=== PATIENT | female | born 1990 | race Two or more races ===

== ENCOUNTER 2017-12-04 09:30 | Emergency (ER) | payer MEDICAID ==
[~2017-12-04] VITALS: Ht 157.5 cm; Wt 49.0 kg
[2017-12-04 09:39] VITALS: BP 102/40
== END 2017-12-04 10:07 | disposition left against medical advice (07) ==
LOC: ER 09:30
DX: R51 Headache (principal); G89.29 Other chronic pain; Z53.29 Procedure and treatment not carried out because of patient's decision for other reasons

== ENCOUNTER 2017-12-13 15:08 | Emergency (ER) | payer MEDICAID ==
[2017-12-13 15:14] VITALS: BP 104/51
== END 2017-12-13 16:17 | disposition home or self-care (01) ==
LOC: ER 15:08
DX: J45.909 Unspecified asthma, uncomplicated (principal)

== ENCOUNTER 2018-02-20 00:32 | Emergency (ER) | payer MEDICAID ==
[~2018-02-20] VITALS: Ht 170.2 cm; Wt 49.9 kg
[2018-02-20 00:36] VITALS: BP 113/65
== END 2018-02-20 00:46 | disposition left against medical advice (07) ==
LOC: EDBD 00:32 → ER 00:32
DX: R06.02 Shortness of breath (principal); Z53.21 Procedure and treatment not carried out due to patient leaving prior to being seen by health care provider

== ENCOUNTER 2018-02-20 01:18 | Emergency (ER) | payer MEDICAID ==
[~2018-02-20] VITALS: Ht 160 cm; Wt 49.0 kg
[2018-02-20 01:40] VITALS: BP 136/79
== END 2018-02-20 04:43 | disposition home or self-care (01) ==
LOC: ER 01:18
DX: J45.909 Unspecified asthma, uncomplicated (principal); F41.9 Anxiety disorder, unspecified; F12.10 Cannabis abuse, uncomplicated
CPT/HCPCS: 71046

== ENCOUNTER 2018-02-20 06:40 | Emergency (ER) | payer MEDICAID ==
[~2018-02-20] VITALS: Ht 170.2 cm; Wt 54.4 kg
[2018-02-20 06:43] VITALS: BP 111/66
== END 2018-02-20 08:10 | disposition left against medical advice (07) ==
LOC: ER 06:40 → EDBD 06:40 → ER 08:10
DX: F41.1 Generalized anxiety disorder (principal); F12.10 Cannabis abuse, uncomplicated; Z53.29 Procedure and treatment not carried out because of patient's decision for other reasons
CPT/HCPCS: 93005

== ENCOUNTER 2018-02-20 22:21 | Emergency (ER) | payer MEDICAID ==
[~2018-02-20] VITALS: Ht 167.6 cm; Wt 63.5 kg
[2018-02-20 22:26] VITALS: BP 106/50
== END 2018-02-21 01:55 | disposition left against medical advice (07) ==
LOC: EDUNIT# 22:21 → EDBD 22:21 → ER 22:43
DX: R06.02 Shortness of breath (principal); Z53.21 Procedure and treatment not carried out due to patient leaving prior to being seen by health care provider

== ENCOUNTER 2018-02-21 07:58 | Emergency (ER) | payer MEDICAID ==
[~2018-02-21] VITALS: Ht 152.4 cm; Wt 45.9 kg
[2018-02-21 08:13] VITALS: BP 105/70
[2018-02-21 09:45] LABS: Basophils # (auto) 0.1 uL; Basophils % (auto) 0.6 % (0.0-2.0); Eosinophils # (auto) 0.1 uL; Eosinophils % (auto) 1.1 % (0.0-7.0); Hematocrit 43.2 % (36.0-46.0); Hemoglobin 14.5 g/dL (12.2-16.2); Lymphocytes # (auto) 1.7 uL; Lymphocytes % (auto) 18.9 % (10.0-50.0); Mean Corpuscular Hemoglobin 31.4 pg (28.0-32.0); Mean Corpuscular Hgb Conc. 33.5 g/dL (32.0-36.0); Mean Corpuscular Volume 93.5 fL (80.0-100.0); Monocytes # (auto) 0.8 uL; Monocytes % (auto) 8.5 % (0.0-12.0); Neutrophils # (auto) 6.4 uL; Neutrophils % (auto) 70.9 % (37.0-80.0); Platelet Count (auto) 446 10^3/uL (140-450); Red Blood Cells 4.62 10^6/uL (4.0-5.20); Red Cell Distribution Width 12.5 % (11.8-14.3); White Blood Cell 9.1 10^3/uL (4.4-10.8)
[2018-02-21 10:03] LABS: Salicylate < 1.7 mg/dL (2.8-20.0)
[2018-02-21 10:04] LABS: Alanine Aminotransferase 24 U/L (13-56); Albumin 4.6 g/dL (3.4-5.0); Anion Gap 7 (5-15); Aspartate Aminotransferase 28 U/L (15-37); BUN/Creatinine Ratio 9.1; Blood Alcohol < 3.0 mg/dL (0-5); Blood Urea Nitrogen 6 mg/dL (7-18); Calcium 9.2 mg/dL (8.5-10.1); Carbon Dioxide 26 mmol/L (21-32); Chloride 104 mmol/L (98-107); GFR African American 137 mL/min; GFR Non-African American 113 mL/min; Glucose 131 mg/dL (74-106); Potassium 3.2 mmol/L (3.5-5.1); Sodium 137 mmol/L (136-145)
[2018-02-21 10:06] LABS: Alkaline Phosphatase 72 U/L (45-117); Bilirubin, Total 1.2 mg/dL (0.2-1.0); Total Protein 8.3 g/dL (6.4-8.2)
[2018-02-21 10:11] LABS: Acetaminophen < 2.0 ug/mL (10-30)
[2018-02-21 10:13] LABS: Urine Bacteria NONE SEEN /hpf (None Seen); Urine Blood Negative /uL (Negative); Urine Mucus FEW (None Seen); Urine Specific Gravity 1.025 (1.001-1.035); Urine WBC 3 /hpf (0 - 5)
[2018-02-21 10:20] LABS: Alcohol, Urine < 3.0 mg/dL (0-5); Amphetamine Screen, Urine NEGATIVE (NEGATIVE); Barbiturate Scree,Urine NEGATIVE (NEGATIVE); Benzodiazephine Screen, Urine NEGATIVE (NEGATIVE); Cannabinoid Screen, Urine NEGATIVE (NEGATIVE); Cocaine Screen, Urine NEGATIVE (NEGATIVE); Opiate Scree,Urine NEGATIVE (NEGATIVE); Phencyclidine Screen, Urine NEGATIVE (NEGATIVE)
== END 2018-02-21 11:13 | disposition home or self-care (01) ==
LOC: ER 07:58
DX: R06.02 Shortness of breath (principal); N39.0 Urinary tract infection, site not specified; F41.9 Anxiety disorder, unspecified; F20.9 Schizophrenia, unspecified; F12.10 Cannabis abuse, uncomplicated
CPT/HCPCS: 36415; 80053; 80307; 80320; 80329; 81001; 85025

== ENCOUNTER 2018-03-08 14:44 | Emergency (ER) | payer MEDICAID ==
[~2018-03-08] VITALS: Ht 170.2 cm; Wt 54.4 kg
[2018-03-08] MEDS ORDERED: ACETAMINOPHEN 500 MG TAB PO ONE (15:15)
[2018-03-08 15:24] VITALS: BP 115/40
== END 2018-03-08 17:20 | disposition home or self-care (01) ==
LOC: ER 14:44 → EDBD 14:44 → EDUNIT# 14:44 → ER 17:20
DX: J40 Bronchitis, not specified as acute or chronic (principal); F12.10 Cannabis abuse, uncomplicated
CPT/HCPCS: 93005

== ENCOUNTER 2018-07-16 11:47 | Emergency (ER) | payer MEDICAID ==
[~2018-07-16] VITALS: Ht 157.5 cm; Wt 48.1 kg
[2018-07-16 11:53] VITALS: BP 108/41
[2018-07-16] MEDS ORDERED: ELECTROLYTE 1000ML ORAL SOLN PO ONE (14:00)
== END 2018-07-16 14:07 | disposition home or self-care (01) ==
LOC: ER 11:58
DX: R68.2 Dry mouth, unspecified (principal)

== ENCOUNTER → 2019-03-24 | Emergency (ER) | payer MEDICAID ==
[~2019-03-24] VITALS: Ht 160 cm; Wt 43.5 kg
[2019-03-24] MEDS: LORazepam 0.5 MG TAB PO ONE (13:17)
[2019-03-24 14:38] LABS: Basophils # (auto) 0 uL; Basophils % (auto) 0.7 % (0.0-2.0); Eosinophils # (auto) 0.1 uL; Eosinophils % (auto) 1.3 % (0.0-7.0); Hematocrit 37.1 % (36.0-46.0); Hemoglobin 12.7 g/dL (12.2-16.2); Lymphocytes # (auto) 1.5 uL; Lymphocytes % (auto) 25.2 % (10.0-50.0); Mean Corpuscular Hgb Conc. 34.3 g/dL (32.0-36.0); Mean Corpuscular Volume 93.3 fL (80.0-100.0); Monocytes # (auto) 0.6 uL; Monocytes % (auto) 10.3 % (0.0-12.0); Neutrophils # (auto) 3.7 uL; Neutrophils % (auto) 62.5 % (37.0-80.0); Platelet Count (auto) 343 10^3/uL (140-450); Red Blood Cells 3.98 10^6/uL (4.0-5.20); Red Cell Distribution Width 12.3 % (11.8-14.3)
[2019-03-24 14:57] LABS: Albumin 3.6 g/dL (3.4-5.0); Anion Gap 4 (5-15); Blood Urea Nitrogen 12 mg/dL (7-18); Calcium 8.7 mg/dL (8.5-10.1); Carbon Dioxide 29 mmol/L (21-32); Chloride 105 mmol/L (98-107); Glucose 117 mg/dL (74-106); Sodium 138 mmol/L (136-145)
[2019-03-24 15:01] LABS: Alanine Aminotransferase 11 U/L (13-56); Aspartate Aminotransferase 7 U/L (15-37); BUN/Creatinine Ratio 18.8; Blood Alcohol < 3.0 mg/dL (0-5); GFR African American 141 mL/min; GFR Non-African American 117 mL/min; Salicylate < 1.7 mg/dL (2.8-20.0)
[2019-03-24 15:02] LABS: Acetaminophen < 2.0 ug/mL (10-30)
[2019-03-24 15:03] LABS: Alkaline Phosphatase 55 U/L (45-117); Bilirubin, Total 0.8 mg/dL (0.2-1.0)
[2019-03-24 18:52] LABS: Urine Bacteria FEW /hpf (None Seen); Urine Blood Negative /uL (Negative); Urine Mucus FEW (None Seen); Urine Specific Gravity 1.018 (1.001-1.035); Urine WBC 4 /hpf (0 - 5)
[2019-03-24 19:00] LABS: Alcohol, Urine < 3.0 mg/dL (0-5); Amphetamine Screen, Urine NEGATIVE (NEGATIVE); Barbiturate Scree,Urine NEGATIVE (NEGATIVE); Benzodiazephine Screen, Urine NEGATIVE (NEGATIVE); Cannabinoid Screen, Urine NEGATIVE (NEGATIVE); Cocaine Screen, Urine NEGATIVE (NEGATIVE); Opiate Scree,Urine NEGATIVE (NEGATIVE); Phencyclidine Screen, Urine NEGATIVE (NEGATIVE)
[2019-03-26 07:30] VITALS: BP 94/56
[2019-03-27] MEDS: LORazepam 0.5 MG TAB PO ONE (02:01)
== END | disposition home or self-care (01) ==
LOC: ER 12:31
DX: R45.850 Homicidal ideations (principal)
CPT/HCPCS: 36415; 80053; 80307; 80320; 80329; 81001; 85025

== ENCOUNTER 2019-10-23 22:56 | Emergency (ER) | payer MEDICAID ==
[~2019-10-23] VITALS: Ht 167.6 cm; Wt 47.2 kg
[2019-10-23 23:27] VITALS: BP 96/39
== END 2019-10-24 05:01 | disposition home or self-care (01) ==
LOC: ER 22:56
DX: S13.9XXA Sprain of joints and ligaments of unspecified parts of neck, initial encounter (principal); S23.3XXA Sprain of ligaments of thoracic spine, initial encounter; W07.XXXA Fall from chair, initial encounter; Y93.89 Activity, other specified; Y92.89 Other specified places as the place of occurrence of the external cause; Y99.8 Other external cause status
CPT/HCPCS: 72040; 72070

== ENCOUNTER 2019-10-24 16:13 | Emergency (ER) | payer MEDICAID ==
[~2019-10-24] VITALS: Ht 157.5 cm; Wt 54.4 kg
[2019-10-24 16:52] VITALS: BP 110/84
== END 2019-10-24 17:46 | disposition home or self-care (01) ==
LOC: ER 16:13 → EDBD 16:13 → ER 17:46
DX: S23.3XXA Sprain of ligaments of thoracic spine, initial encounter (principal); X58.XXXA Exposure to other specified factors, initial encounter; Y93.89 Activity, other specified; Y92.89 Other specified places as the place of occurrence of the external cause; Y99.8 Other external cause status

== ENCOUNTER 2020-11-17 01:42 | Emergency (ER) | payer MEDICAID ==
[~2020-11-17] VITALS: Ht 165.1 cm; Wt 46.0 kg
[2020-11-17 07:04] VITALS: BP 128/65
== END 2020-11-17 14:35 | disposition home or self-care (01) ==
LOC: ER 01:44
DX: J02.9 Acute pharyngitis, unspecified (principal)

== ENCOUNTER 2020-12-04 18:39 | Emergency (ER) | payer MEDICAID ==
[~2020-12-04] VITALS: Ht 157.5 cm; Wt 49.0 kg
[2020-12-04 19:43] LABS: Salicylate < 1.7 mg/dL (2.8-20.0)
[2020-12-04 19:51] LABS: Acetaminophen < 2.0 ug/mL (10-30)
[2020-12-04 21:12] VITALS: BP 90/43
== END 2020-12-04 21:15 | disposition home or self-care (01) ==
LOC: ER 18:41
DX: F41.8 Other specified anxiety disorders (principal); F20.9 Schizophrenia, unspecified
CPT/HCPCS: 36415; 80320; 80329

== ENCOUNTER 2021-03-16 12:23 | Emergency (ER) | payer MEDICAID ==
[~2021-03-16] VITALS: Ht 152.4 cm; Wt 54.4 kg
[2021-03-16 15:01] VITALS: BP 119/70
[2021-03-16] MEDS ORDERED: AZIT250T8 PO (15:11)
[2021-03-16] MEDS ORDERED: NAPR500T31 PO (15:11)
== END 2021-03-16 15:18 | disposition home or self-care (01) ==
LOC: ER 12:23 → EDBD 12:23 → ER 15:15
DX: R51.9 Headache, unspecified (principal); J02.9 Acute pharyngitis, unspecified
CPT/HCPCS: 70450

== ENCOUNTER 2022-01-24 13:22 | Emergency (ER) | payer MEDICAID ==
[~2022-01-24] VITALS: Ht 157.5 cm; Wt 59.0 kg
[~2022-01-24 13:22] MED LIST: AZIT250T8 PO; NAPR500T31 PO
[2022-01-24 13:27] VITALS: BP 116/78
[2022-01-24 14:15] LABS: Basophils # (auto) 0 10 ^3/uL (0-0.2); Basophils % (auto) 0.6 % (0.0-2.0); Eosinophils # (auto) 0.1 10 ^3/uL (0-0.8); Eosinophils % (auto) 1.4 % (0.0-7.0); Hematocrit 41.2 % (36.0-46.0); Hemoglobin 13.7 g/dL (12.2-16.2); Lymphocytes # (auto) 1.6 10 ^3/uL (0.4-5.4); Lymphocytes % (auto) 24.5 % (10.0-50.0); Mean Corpuscular Hemoglobin 30.9 pg (28.0-32.0); Mean Corpuscular Hgb Conc. 33.1 g/dL (32.0-36.0); Mean Corpuscular Volume 93.5 fL (80.0-100.0); Monocytes # (auto) 0.5 10 ^3/uL (0-1.3); Monocytes % (auto) 8.4 % (0.0-12.0); Neutrophils # (auto) 4.2 10 ^3/uL (1.6-8.6); Neutrophils % (auto) 65.1 % (37.0-80.0); Red Blood Cells 4.41 10^6/uL (4.0-5.20); Red Cell Distribution Width 12.4 % (11.8-14.3); White Blood Cell 6.4 10^3/uL (4.4-10.8)
[2022-01-24 14:27] LABS: Albumin 3.9 g/dL (3.4-5.0); BUN/Creatinine Ratio 14.5; Calcium 8.9 mg/dL (8.5-10.1); Potassium 3.9 mmol/L (3.5-5.1)
[2022-01-24 14:33] LABS: Bilirubin, Total 1.1 mg/dL (0.2-1.0); Total Protein 7.5 g/dL (6.4-8.2)
== END 2022-01-24 15:24 | disposition home or self-care (01) ==
LOC: EDBD 13:22 → ER 13:23
DX: R42 Dizziness and giddiness (principal)
CPT/HCPCS: 36415; 80053; 84702; 85025; 93005